=== PATIENT | male | born 1985 | race Caucasian/White ===

== ENCOUNTER 2018-04-24 10:25 | Emergency (ER) | payer BC ==
[~2018-04-24] VITALS: Wt 81.6 kg
[2018-04-24 12:26] LABS: BASO % 0.3 % (0.0-1.0); EOS % 0.1 % (1.0-4.0); HEMATOCRIT 43.6 % (42.0-52.0); HEMOGLOBIN 15.1 g/dl (14.0-18.0); LYMPH # 0.8 10*3/uL (1.3-4.4); LYMPH % 7.2 % (27.0-41.0); MEAN CELL VOLUME 89.9 fl (80.0-94.0); MEAN CORPUSCULAR HGB 31.1 pg (27.0-31.0); MEAN CORPUSCULAR HGB CONC 34.6 g/dl (33.0-37.0); MEAN PLATELET VOLUME 10.2 fl (9.6-12.3); MONO # 1.1 10*3/uL (0.1-1.0); MONO % 9.1 % (3.0-9.0); NEUT # 9.6 10*3/uL (2.3-7.9); PLATELET COUNT AUTOMATED 155 10*3/uL (130-400); RED BLOOD COUNT 4.85 10*6/uL (4.50-5.90); RED CELL DISTRI WIDTH 12.6 % (0-14.5); WHITE BLOOD COUNT 11.6 10*3/uL (4.8-10.8)
[2018-04-24 12:39] LABS: BUN 7 mg/dl (7-24); CHLORIDE 100 mmol/L (98-107); CREATININE 0.76 mg/dL (0.70-1.30); POTASSIUM 4.4 mmol/L (3.5-5.1); SODIUM 135 mmol/L (136-145); URIC ACID 3.8 mg/dL (3.5-7.2)
[2018-04-24] MEDS ORDERED: VIBRAMYCIN100 MG PO (15:44)
[2018-04-24] MEDS ORDERED: SEPTDS PO (15:52)
== END 2018-04-24 15:55 | disposition home or self-care (01) ==
LOC: ED 10:25
PROVIDERS: Emergency Medicine
DX: S83.92XA Sprain of unspecified site of left knee, initial encounter (principal); M71.562 Other bursitis, not elsewhere classified, left knee; X50.1XXA Overexertion from prolonged static or awkward postures, initial encounter; Y93.89 Activity, other specified; Y92.89 Other specified places as the place of occurrence of the external cause; Y99.8 Other external cause status